=== PATIENT | female | born 1975 | race Caucasian/White ===

== ENCOUNTER 2019-04-25 13:55 | Emergency (ER) | payer MEDICAID ==
[~2019-04-25] VITALS: Ht 157.5 cm; Wt 83.9 kg
[2019-04-25 14:00] VITALS: BP 121/90
[2019-04-25 14:46] VITALS: BP 121/90
== END 2019-04-25 14:46 | disposition home or self-care (01) ==
LOC: MED 13:55
DX: L60.0 Ingrowing nail (principal); J45.909 Unspecified asthma, uncomplicated
CPT/HCPCS: 99283